=== PATIENT | male | born 1990 | race Two or more races ===

== ENCOUNTER 2016-11-12 09:21 | Emergency (ER) | payer BC ==
[~2016-11-12] VITALS: Ht 188 cm; Wt 86.2 kg
[2016-11-12 09:26] VITALS: BP 139/89
== END 2016-11-12 12:37 | disposition home or self-care (01) ==
LOC: ER 09:23
DX: J06.9 Acute upper respiratory infection, unspecified (principal)
CPT/HCPCS: 71010-TC; 87400; A4606; Z7610